=== PATIENT | female | born 1955 | race Caucasian/White ===

== ENCOUNTER 2020-05-11 11:27 | Inpatient (IN) | payer OTHER ==
[~2020-05-11] VITALS: Ht 157.5 cm; Wt 91.6 kg
[2020-05-11] MEDS ORDERED: LABETALOL 5MG/ML SYR 20 MG/4 ML SYRINGE IV ONE (11:45)
[2020-05-11] MEDS ORDERED: ONDANSETRON HCL 4MG/2ML INJ IV ONE (11:45)
[2020-05-11 12:28] LABS: BASOPHILS % 1.3 % (0.0-2.0); EOSINOPHILS % 5.3 % (0.0-5.0); HEMATOCRIT. 34.5 % (36.0-48.0); HEMOGLOBIN. 11.5 g/dL (12.0-16.0); LYMPHOCYTES % 30.6 % (20.0-50.0); MEAN CORPUSCULAR HEMOGLOBIN 29.5 pg (28.0-32.0); MEAN CORPUSCULAR VOLUME 88.9 fL (81.0-99.0); MEAN PLATELET VOLUME 9.6 fl (7.4-10.4); MONOCYTES % 7.8 % (2.0-8.0); PLATELET 341 x1000/uL (130-400); RED BLOOD CELL COUNT 3.89 mill/uL (4.2-5.4); RED CELL DISTRIBUTION WIDTH 20.5 % (11.6-14.6)
[2020-05-11 12:29] LABS: CLARITY URINE CLEAR (CLEAR); COLOR URINE DARK YELLOW (YELLOW); KETONES URINE NEGATIVE (NEGATIVE); LEUKOCYTE ESTERASE URINE NEGATIVE (NEGATIVE); NITRITE URINE POSITIVE (NEGATIVE); OCCULT BLOOD URINE NEGATIVE (NEGATIVE); PH URINE 6.5 (4.5-8.0); PROTEIN URINE NEGATIVE (NEGATIVE); SPECIFIC GRAVITY URINE 1.008 (1.005-1.030); UROBILINOGEN URINE 0.2 E.U./dL (0.2-1.0)
[2020-05-11 12:35] LABS: CHLORIDE 104 mEq/L (98-107)
[2020-05-11 12:42] LABS: ETHANOL BLOOD < 10 mg/dL
[2020-05-11 12:44] LABS: INR 0.9; LDL CHOLESTEROL 155 mg/dL (5-100)
[2020-05-11 12:45] LABS: CREATINE KINASE 113 IU/L (26-192)
[2020-05-11] MEDS ORDERED: LEVETIRACETAM 1000MG PREMIX 100 ML IV ONE (13:15)
[2020-05-11 13:19] LABS: *AMPHETAMINES SCREEN URINE NEGATIVE (NEGATIVE)
[2020-05-11 13:20] LABS: *BARBITURATES SCREEN URINE NEGATIVE (NEGATIVE); *BENZODIAZEPINES SCREEN URINE NEGATIVE (NEGATIVE); *COCAINE SCREEN URINE NEGATIVE (NEGATIVE); METHADONE URINE SCREEN NEGATIVE (NEGATIVE)
[2020-05-11 13:21] LABS: CANNABINOID URINE SCREEN NEGATIVE (NEGATIVE); OPIATES URINE SCREEN NEGATIVE (NEGATIVE); PHENCYCLIDINE URINE SCREEN NEGATIVE (NEGATIVE)
[2020-05-11] MEDS ORDERED: CEFTRIAXONE 1 G PREMIX 50 ML IV ONE (13:45)
[2020-05-11] MEDS ORDERED: LORAZEPAM 2MG/ML CPJ IV ONE (14:00)
[2020-05-11] MEDS ORDERED: CLONIDINE 0.1MG TABLET PO PRN (14:45)
[2020-05-11] MEDS ORDERED: TRAZODONE HCL 50MG TABLET PO PRN (14:45)
[2020-05-11] MEDS ORDERED: ONDANSETRON HCL 4MG/2ML INJ IV PRN (14:45)
[2020-05-11 14:49] LABS: BG BASE EXCESS -2.9 mmol/L (-2.0-2.0); BG CARBOXYHEMOGLOBIN 0.7 % (0.5-1.5); BG DEOXYHEMOGLOBIN 0.5 % (0.0-5.0); BG FRACTION INSPIRED OXYGEN 100; BG HCO3 ACT 22.2 mmol/L (22.0-26.0); BG METHEMOGLOBIN 0.1 % (0.0-1.5); BG OXYGEN SATURATION 99.5 % (92.0-98.5); BG OXYHEMOGLOBIN 98.7 % (94.0-97.0); BG PCO2 39.5 mmHg (35.0-45.0); BG PH 7.367 (7.350-7.450); BG SAMPLE SITE RIGHT RADIAL; BG TOTAL HEMOGLOBIN 11.8 g/dL (12.0-18.0); BG VENT MODE MASK - NRB
[2020-05-11] MEDS ORDERED: LABETALOL HCL 200MG TABLET PO SCH (15:00)
[2020-05-11 15:12] LABS: CARBAMAZEPINE < 0.5 ug/mL (4-12); PHENOBARBITAL < 2.1 ug/mL (15.0-40.0); VALPROIC ACID < 3.0 ug/mL (50-100)
[2020-05-11] MEDS: HEPARIN 5000 UNITS/ML VIAL SUBCUT SCH ×2 (17:28→23:00)
[2020-05-11] MEDS ORDERED: HYDRALAZINE 20MG/ML VIAL IV PRN (17:30)
[2020-05-11] MEDS ORDERED: LABETALOL 5MG/ML SYR 20 MG/4 ML SYRINGE IV PRN (17:30)
[2020-05-11] MEDS ORDERED: LABETALOL HCL 100MG TABLET PO SCH (18:00)
[2020-05-11] MEDS: AMLODIPINE 10MG TABLET PO SCH (19:08)
[2020-05-11] MEDS: ACETAMINOPHEN 325MG TABLET PO PRN (20:34)
[2020-05-11 20:55] VITALS: BP 109/36
[2020-05-11 21:27] VITALS: BP 109/36
[2020-05-11] MEDS: ATORVASTATIN CALCIUM 10MG TABLET PO SCH (21:33)
[2020-05-11] MEDS ORDERED: *PATIENT'S OWN MEDICATION STORAGE XX SCH (22:45)
[2020-05-11] MEDS ORDERED: LEVETIRACETAM 500MG PREMIX 100 ML IV SCH ×2 (23:00)
[2020-05-12 02:00] VITALS: BP 109/40
[2020-05-12] MEDS ORDERED: PHEN-910 PO (02:05)
[2020-05-12] MEDS ORDERED: CIPR500S3 PO (02:06)
[2020-05-12] MEDS ORDERED: TOPUD PO (02:07)
[2020-05-12] MEDS ORDERED: LOSA100T32 PO (02:07)
[2020-05-12] MEDS ORDERED: METF-416 PO (02:08)
[2020-05-12] MEDS ORDERED: CHOL40002 PO (02:15)
[2020-05-12] MEDS ORDERED: LEVE250T2 PO (02:17)
[2020-05-12] MEDS ORDERED: ESOM20CA58 PO (02:18)
[2020-05-12] MEDS ORDERED: ASPI-1158 PO (02:18)
[2020-05-12] MEDS ORDERED: PHEN100C12 PO (02:19)
[2020-05-12] MEDS ORDERED: METH2.5T PO (02:20)
[2020-05-12] MEDS ORDERED: NAPR-681 PO (02:21)
[2020-05-12] MEDS ORDERED: FOLI-43 PO (02:21)
[2020-05-12] MEDS ORDERED: MECL-159 PO (02:22)
[2020-05-12] MEDS ORDERED: SIMV-43 PO (02:23)
[2020-05-12 04:00] VITALS: BP 109/40
[2020-05-12] MEDS: ACETAMINOPHEN 325MG TABLET PO PRN ×2 (07:14→12:28)
[2020-05-12 08:00] VITALS: BP 121/53
[2020-05-12 09:06] LABS: BASOPHILS % 0.4 % (0.0-2.0); EOSINOPHILS % 6.2 % (0.0-5.0); HEMATOCRIT. 33.8 % (36.0-48.0); HEMOGLOBIN. 11.3 g/dL (12.0-16.0); LYMPHOCYTES % 18.8 % (20.0-50.0); MEAN CORPUSCULAR HEMOGLOBIN 30.5 pg (28.0-32.0); MEAN CORPUSCULAR VOLUME 91.6 fL (81.0-99.0); MEAN PLATELET VOLUME 9.9 fl (7.4-10.4); MONOCYTES % 7.7 % (2.0-8.0); NEUTROPHILS % 66.9 % (40.0-76.0); PLATELET 249 x1000/uL (130-400); RED BLOOD CELL COUNT 3.69 mill/uL (4.2-5.4); RED CELL DISTRIBUTION WIDTH 20.9 % (11.6-14.6)
[2020-05-12] MEDS: AMLODIPINE 10MG TABLET PO SCH (09:45)
[2020-05-12] MEDS: HEPARIN 5000 UNITS/ML VIAL SUBCUT SCH ×2 (09:46→21:24)
[2020-05-12 10:12] LABS: CHLORIDE 105 mEq/L (98-107)
[2020-05-12] MEDS: LEVETIRACETAM 500MG TABLET PO SCH ×2 (11:13→23:11)
[2020-05-12] MEDS ORDERED: DEXTROSE 50% WATER 50ML SYRINGE IV PRN (11:45)
[2020-05-12 12:00] VITALS: BP 152/59
[2020-05-12] MEDS: INSULIN LISPRO 100 UNITS/ML SUBCUT SCH ×3 (12:15→21:00)
[2020-05-12] MEDS: BLOOD SUGAR DIAGNOSTIC STRIP TEST SCH ×3 (12:26→21:00)
[2020-05-12] MEDS ORDERED: IBUPROFEN 400MG TABLET PO PRN (13:15)
[2020-05-12 16:00] VITALS: BP 146/56
[2020-05-12 20:00] VITALS: BP 132/56
[2020-05-12] MEDS: LABETALOL HCL 200MG TABLET PO SCH (21:23)
[2020-05-12] MEDS: ATORVASTATIN CALCIUM 10MG TABLET PO SCH (21:23)
[2020-05-13 00:26] VITALS: BP 136/41
[2020-05-13 04:00] VITALS: BP 113/51
[2020-05-13 06:30] LABS: BASOPHILS % 1.1 % (0.0-2.0); EOSINOPHILS % 9.5 % (0.0-5.0); HEMATOCRIT. 31.3 % (36.0-48.0); HEMOGLOBIN. 10.5 g/dL (12.0-16.0); LYMPHOCYTES % 27.8 % (20.0-50.0); MEAN CORPUSCULAR VOLUME 89.7 fL (81.0-99.0); MEAN PLATELET VOLUME 9.5 fl (7.4-10.4); MONOCYTES % 11.6 % (2.0-8.0); PLATELET 281 x1000/uL (130-400); RED BLOOD CELL COUNT 3.49 mill/uL (4.2-5.4)
[2020-05-13 06:37] LABS: CHLORIDE 105 mEq/L (98-107)
[2020-05-13] MEDS: BLOOD SUGAR DIAGNOSTIC STRIP TEST SCH ×2 (06:45→11:33)
[2020-05-13] MEDS: INSULIN LISPRO 100 UNITS/ML SUBCUT SCH ×2 (07:15→11:59)
[2020-05-13 08:00] VITALS: BP 121/55
[2020-05-13] MEDS: HEPARIN 5000 UNITS/ML VIAL SUBCUT SCH (08:55)
[2020-05-13] MEDS: LEVETIRACETAM 500MG TABLET PO SCH (08:55)
[2020-05-13] MEDS: LABETALOL HCL 200MG TABLET PO SCH (08:55)
[2020-05-13] MEDS: AMLODIPINE 10MG TABLET PO SCH (08:55)
[2020-05-13 11:48] VITALS: BP 108/46
[2020-05-13] MEDS ORDERED: KEPP500 PO (11:49)
[2020-05-13] MEDS ORDERED: AMLO10TA80 MT (12:13)
[2020-05-13 12:33] VITALS: BP 108/46
== END 2020-05-13 14:20 | disposition home or self-care (01) | DRG 52 ==
LOC: ER 12:03 → EDBEDREQTM 14:49 → EDBEDREQSVC 14:49 → EDBEDREQ 14:49 → 7EST 14:51 → EDBEDREQTM 14:56 → EDBEDREQ 14:56 → ENRESERV 19:57 → 5WST 05-12 12:08
PROVIDERS: ADMIT Internal Medicine; ATTEND Internal Medicine
DX: G93.41 Metabolic encephalopathy (principal); G40.909 Epilepsy, unspecified, not intractable, without status epilepticus; E78.5 Hyperlipidemia, unspecified; E78.00 Pure hypercholesterolemia, unspecified; E11.9 Type 2 diabetes mellitus without complications; I10 Essential (primary) hypertension; I16.1 Hypertensive emergency; N39.0 Urinary tract infection, site not specified; Z20.828 Contact with and (suspected) exposure to other viral communicable diseases; Z79.84 Long term (current) use of oral hypoglycemic drugs; Z79.899 Other long term (current) drug therapy; J81.1 Chronic pulmonary edema
CPT/HCPCS: 36415; 36600; 71045; 80053; 80156; 80165; 80184; 80185; 80305; 80320; 81003; 82375; 82550; 82805; 82962; 83036; 83721; 83735; 83880; 84484; 85025; 87635; 92610; 93005; 93306; 97161; 99291; C1893; J0696; J1644; J1815; J1953; J2060; J2405; J3490; G0480

== ENCOUNTER 2020-06-16 20:30 | Emergency (ER) | payer OTHER ==
[~2020-06-16] VITALS: Ht 152.4 cm; Wt 66.0 kg
[~2020-06-16 20:30] MED LIST: AMLO10TA80 MT; ASPI-1158 PO; CHOL40002 PO; ESOM20CA58 PO; FOLI-43 PO; KEPP500 PO; LEVE250T2 PO; LOSA100T32 PO; MECL-159 PO; METF-416 PO; METH2.5T PO; NAPR-681 PO; PHEN-910 PO; SIMV-43 PO; TOPUD PO
[2020-06-16] MEDS ORDERED: SODIUM CHLORIDE 0.9% 1,000 ML IV ONE (21:45)
[2020-06-16] MEDS ORDERED: LORAZEPAM 2MG/ML CPJ IV ONE (22:45)
[2020-06-16] MEDS ORDERED: MIDAZOLAM HCL 2 MG/2 ML VIAL IM ONE (23:00)
[2020-06-16 23:08] LABS: BASOPHILS % 1.2 % (0.0-2.0); EOSINOPHILS % 2.6 % (0.0-5.0); HEMATOCRIT. 37.6 % (36.0-48.0); HEMOGLOBIN. 12.4 g/dL (12.0-16.0); LYMPHOCYTES % 28.5 % (20.0-50.0); MEAN CORPUSCULAR HEMOGLOBIN 29.6 pg (28.0-32.0); MEAN CORPUSCULAR VOLUME 89.9 fL (81.0-99.0); MEAN PLATELET VOLUME 9.5 fl (7.4-10.4); MONOCYTES % 5.7 % (2.0-8.0); PLATELET 351 x1000/uL (130-400); RED BLOOD CELL COUNT 4.18 mill/uL (4.2-5.4)
[2020-06-16] MEDS ORDERED: LIDOCAINE HCL/EPINEPHRINE 1%-EPI 1:100,000 20 ML VIAL INFIL SCH (23:15)
[2020-06-16 23:17] LABS: CHLORIDE 103 mEq/L (98-107)
[2020-06-16 23:18] LABS: INR 0.9; PROTHROMBIN TIME 9.8 sec (9.6-11.0)
[2020-06-16 23:20] LABS: ETHANOL BLOOD < 10 mg/dL
[2020-06-16 23:22] LABS: PHOSPHORUS 3.5 mg/dL (2.5-4.9)
[2020-06-16 23:37] LABS: CARBAMAZEPINE < 0.5 ug/mL (4-12); PHENOBARBITAL < 2.1 ug/mL (15.0-40.0); VALPROIC ACID < 3.0 ug/mL (50-100)
[2020-06-17] MEDS ORDERED: LORAZEPAM 2MG/ML CPJ IV ONE (01:30)
[2020-06-17] MEDS ORDERED: LEVETIRACETAM 1000MG PREMIX 100 ML IV SCH (02:00)
[2020-06-17 08:54] LABS: CLARITY URINE CLEAR (CLEAR); COLOR URINE YELLOW (YELLOW); KETONES URINE NEGATIVE (NEGATIVE); LEUKOCYTE ESTERASE URINE TRACE (NEGATIVE); NITRITE URINE NEGATIVE (NEGATIVE); OCCULT BLOOD URINE NEGATIVE (NEGATIVE); PROTEIN URINE NEGATIVE (NEGATIVE); SPECIFIC GRAVITY URINE 1.012 (1.005-1.030); UROBILINOGEN URINE 0.2 E.U./dL (0.2-1.0)
[2020-06-17 09:14] LABS: *AMPHETAMINES SCREEN URINE NEGATIVE (NEGATIVE); *BARBITURATES SCREEN URINE NEGATIVE (NEGATIVE); *BENZODIAZEPINES SCREEN URINE PRESUMTIVE POSITIVE (NEGATIVE); *COCAINE SCREEN URINE NEGATIVE (NEGATIVE); METHADONE URINE SCREEN NEGATIVE (NEGATIVE)
[2020-06-17 09:15] LABS: CANNABINOID URINE SCREEN NEGATIVE (NEGATIVE); OPIATES URINE SCREEN NEGATIVE (NEGATIVE); PHENCYCLIDINE URINE SCREEN NEGATIVE (NEGATIVE)
[2020-06-17 15:30] VITALS: BP 154/72
[2020-06-17] MEDS ORDERED: LEVETIRACETAM 500MG TABLET PO SCH (21:00)
== END 2020-06-17 15:40 | disposition home or self-care (01) ==
LOC: ER 20:30 → CANBEDREQ 06-17 16:43
DX: G40.909 Epilepsy, unspecified, not intractable, without status epilepticus (principal); I10 Essential (primary) hypertension; E11.9 Type 2 diabetes mellitus without complications; E78.00 Pure hypercholesterolemia, unspecified; E87.1 Hypo-osmolality and hyponatremia
CPT/HCPCS: 36415; 71045; 80053; 80076; 80156; 80165; 80184; 80185; 80305; 80307; 80320; 80329; 81003; 82140; 82542; 83605; 83735; 84100; 84443; 85025; 85610; 86592; 87040; 87086; 87186; 93005; 96361; 96365; 96375; 99285; J1953; J2060; J7030; G0480

== ENCOUNTER 2021-05-29 12:29 | Emergency (ER) | payer SELFPAY ==
[~2021-05-29] VITALS: Ht 157.5 cm; Wt 79.0 kg
[~2021-05-29 12:29] MED LIST changes: -ASPI-1158 PO; +ASPI-1406 PO
[2021-05-29 12:36] VITALS: BP 137/63
[2021-05-29] MEDS ORDERED: ACETAMINOPHEN 325MG TABLET PO ONE (13:15)
[2021-05-29] MEDS ORDERED: IBUPROFEN 600MG TABLET PO ONE (13:15)
== END 2021-05-29 14:26 | disposition home or self-care (01) ==
LOC: ER 12:38
DX: R07.89 Other chest pain (principal); E11.9 Type 2 diabetes mellitus without complications; E78.00 Pure hypercholesterolemia, unspecified; Z80.0 Family history of malignant neoplasm of digestive organs; Z88.2 Allergy status to sulfonamides; Z79.899 Other long term (current) drug therapy; Z79.82 Long term (current) use of aspirin; Z86.59 Personal history of other mental and behavioral disorders; Z98.890 Other specified postprocedural states
CPT/HCPCS: 93005; 99283

== ENCOUNTER 2022-07-12 15:35 | Emergency (ER) | payer OTHER, MEDICAID ==
[~2022-07-12] VITALS: Ht 162.6 cm; Wt 77.0 kg
[2022-07-12 15:44] VITALS: BP 138/86
== END 2022-07-12 16:32 | disposition left against medical advice (07) ==
LOC: ER 16:18
DX: U07.1 COVID-19 (principal); I10 Essential (primary) hypertension; E78.00 Pure hypercholesterolemia, unspecified; E11.9 Type 2 diabetes mellitus without complications; Z88.0 Allergy status to penicillin; Z88.2 Allergy status to sulfonamides; Z98.890 Other specified postprocedural states; Z79.82 Long term (current) use of aspirin; Z79.899 Other long term (current) drug therapy; Z86.59 Personal history of other mental and behavioral disorders
CPT/HCPCS: 99283

== ENCOUNTER 2023-02-08 02:06 | Emergency (ER) | payer MEDICARE, MEDICAID ==
[~2023-02-08] VITALS: Ht 154.9 cm; Wt 58.0 kg
[~2023-02-08 02:06] MED LIST changes: -LOSA100T32 PO; +LOSA100T33 PO
[2023-02-08 02:47] VITALS: TEMP 98.6; O2SAT 98
[2023-02-08 03:32] LABS: CHLORIDE 98 mEq/L (98-107); INDEX HEMOLYSI 1 (1-3); INDEX ICTERIC 1 (1-4); INDEX LIPEMIC 1 (1-3); POTASSIUM 4.1 mEq/L (3.5-5.1); SODIUM 131 mEq/L (136-145)
[2023-02-08 03:33] LABS: EOSINOPHILS % 2.3 % (0.0-5.0); HEMATOCRIT. 36.5 % (36.0-48.0); HEMOGLOBIN. 12.4 g/dL (12.0-16.0); LYMPHOCYTES % 19.5 % (20.0-50.0); MEAN CORPUSCULAR HGB CONC 34.1 g/dL (31.0-37.0); MEAN CORPUSCULAR VOLUME 93.8 fL (81.0-99.0); MEAN PLATELET VOLUME 9.3 fl (7.4-10.4); MONOCYTES % 6.6 % (2.0-8.0); NEUTROPHILS % 70.6 % (40.0-76.0); PLATELET 346 x1000/uL (130-400); RED BLOOD CELL COUNT 3.89 mill/uL (4.2-5.4); RED CELL DISTRIBUTION WIDTH 16.7 % (11.6-14.6); WHITE BLOOD COUNT 8.6 x1000/uL (4.5-11.0)
[2023-02-08 03:42] LABS: ALANINE AMINOTRANSFERASE 27 IU/L (13-61); ALBUMIN 3.3 g/dL (3.4-5.0); ASPARTATE AMINOTRANSFERASE 20 IU/L (15-37); BILIRUBIN TOTAL 0.4 mg/dL (0.1-1.0); CALCIUM 8.4 mg/dL (8.5-10.1); CARBON DIOXIDE 23 mEq/L (21-32); CREATININE 0.7 mg/dL (0.6-1.3); GLUCOSE 142 mg/dL (70-105); PROTEIN TOTAL 8.6 g/dL (6.0-8.3); UREA NITROGEN BLOOD 9 mg/dL (7-21)
[2023-02-08 04:01] VITALS: BP 171/69; PULSE 78; RESP 12
[2023-02-08] MEDS ORDERED: ONDANSETRON HCL 4MG/2ML INJ IV STA (04:01)
[2023-02-08] MEDS ORDERED: MORPHINE SULFATE 4 MG/ML CPJ (NOT FOR IM USE) IV STA (04:01)
[2023-02-08 05:41] LABS: CLARITY URINE CLEAR (CLEAR); COLOR URINE YELLOW (YELLOW); GLUCOSE URINE NEGATIVE (NEGATIVE); KETONES URINE NEGATIVE (NEGATIVE); LEUKOCYTE ESTERASE URINE TRACE (NEGATIVE); NITRITE URINE NEGATIVE (NEGATIVE); OCCULT BLOOD URINE NEGATIVE (NEGATIVE); PH URINE 7.5 (4.5-8.0); PROTEIN URINE NEGATIVE (NEGATIVE); SPECIFIC GRAVITY URINE 1.007 (1.005-1.030); UROBILINOGEN URINE 0.2 E.U./dL (0.2-1.0)
[2023-02-08 05:43] LABS: BACTERIA URINE NONE SEEN; YEAST URINE NONE SEEN
[2023-02-08] MEDS ORDERED: HYDR-4001 MT (06:09)
[2023-02-08] MEDS ORDERED: DIPHENHYDRAMINE 50MG/ML VIAL IV ONE (06:30)
[2023-02-08] MEDS ORDERED: METOCLOPRAMIDE HCL 10MG/2ML VIAL IV ONE (06:30)
[2023-02-08 06:59] LABS: SQUAMOUS EPITHELIAL CELL URINE FEW /lpf (RARE/1+); WBC URINE 0-2 /hpf (0-2)
[2023-02-08 07:01] LABS: RBC URINE 0-2 /hpf (0-2)
== END 2023-02-08 08:12 | disposition home or self-care (01) ==
LOC: ER 02:06
DX: R51.9 Headache, unspecified (principal); E11.9 Type 2 diabetes mellitus without complications; E78.00 Pure hypercholesterolemia, unspecified; I10 Essential (primary) hypertension; Z87.440 Personal history of urinary (tract) infections; Z79.899 Other long term (current) drug therapy
CPT/HCPCS: 99285; 96374; 96375; 70450; 80053; 81003; 85025; 36415; J1200; J2765; J2405; J2270; C1893